=== PATIENT | male | born 1985 | race Caucasian/White ===

== ENCOUNTER 2018-09-20 12:36 | Emergency (ER) | payer OTHER, MEDICAID ==
[~2018-09-20] VITALS: Ht 185.4 cm; Wt 106.6 kg
[2018-09-20 12:36] VITALS: BP_SYST 122
--- NOTE | 2018-09-20 12:37 | NUR ---
BROUGHT IN BY [facility] AND PLACED IN BED #1. REPORT GIVEN TO CRISTINE
--- NOTE | 2018-09-20 12:40 | NUR ---
PATIENT SITTING UP ON BED. AAOX4. RESPIRATIONS EVEN AND UNLABORED. DENIES OF ANY CHEST PAIN OR SOB. PT IN NO ACUTE DISTRESS. PT WITH C/O GENERALIZED ABDOMINAL PAIN WITH NO BM x2 DAYS. +NAUSEA. PT STATES THAT HE VOMITED x4 TODAY. NO ACTIVE VOMITING NOTED. NO OBJECTIVE S/SX OF PAIN OBSERVED. ABDOMINAL PAIN = 8/10 AT THIS TIME BUT TOLERABLE VERBALIZED. BOWEL SOUNDS HYPERACTIVE x4. PATIENT IN NO ACUTE DISTRESS. WILL CONTINUE TO MONITOR.
--- NOTE | 2018-09-20 12:45 | NUR ---
ER Dr. DREW at bedside examining patient.
[2018-09-20 13:13] LABS: BILIRUBIN,URINE NEGATIVE (NEGATIVE); BLOOD, URINE NEGATIVE (NEGATIVE); CLARITY/URINE SL HAZY (CLEAR); COLOR,URINE YELLOW (YELLOW); GLUCOSE,URINE NEGATIVE (NEGATIVE); KETONES,URINE NEGATIVE (NEGATIVE); LEUKOCYTE ESTERASE ,URINE NEGATIVE (NEGATIVE); NITRITE, URINE NEGATIVE (NEGATIVE); PROTEIN URINE NEGATIVE (NEGATIVE); UROBILINOGEN,URINE 0.2 (0.2-1.0)
[2018-09-20 13:19] LABS: CALCIUM 9.1 mg/dL (8.4-11.0); CREATININE 0.84 mg/dL (0.55-1.30); POTASSIUM 4.5 mmol/L (3.5-5.1)
[2018-09-20 13:21] LABS: BASOPHILS % (AUTO) 0.2 % (0.0-2.0); EOSINOPHILS % (AUTO) 0.9 % (0.0-4.0); LYMPHOCYTES # (AUTO) 1.3 K/uL (1.0-5.5); LYMPHOCYTES % (AUTO) 26.1 % (20.5-51.5); MEAN CORPUSCULAR HEMOGLOBIN 31 pg (27-31); MEAN CORPUSCULAR HGB CONC 33 % (32-36); MEAN CORPUSCULAR VOLUME 93 fL (79.0-98.0); MONOCYTES # (AUTO) 0.5 K/uL (0.0-1.0); MONOCYTES % (AUTO) 10.4 % (1.7-9.3); NEUTROPHILS # (AUTO) 3.2 K/uL (1.8-7.7); NEUTROPHILS % (AUTO) 62.4 % (40.0-70.0); PLATELET COUNT (AUTO) 302 K/uL (130-430); RED CELL DISTRIBUTION WIDTH 12.3 % (9.0-15.0)
[2018-09-20 13:24] LABS: ALBUMIN 3.7 g/dL (3.4-4.8); TOTAL BILIRUBIN 0.1 mg/dL (0.0-1.0)
[2018-09-20] MEDS ORDERED: KETOROLAC TROMETHAMINE 60 MG/2 ML VIAL IM ONE ×2 (13:29→13:30)
--- NOTE | 2018-09-20 13:35 | NUR ---
TORADOL ADMINISTERED FOR ABDOMINAL PAIN. TOLERATED WELL.
--- NOTE | 2018-09-20 14:00 | NUR ---
PATIENT SITTING UP ON BED. PT IN GOOD CONDITION AND IN NO ACUTE DISTRESS. PT READY FOR DISCHARGE, BUT AWAITING RIDE BACK TO [facility]. FACILITY MADE AWARE AND SEND TRANSPORTATION FOR PATIENT. ETA [id number].
--- NOTE | 2018-09-20 14:15 | NUR ---
PATIENT VERBALIZED RELIEF FROM ABDOMINAL PAIN. PAIN = 0/10. PT IN NO ACUTE DISTRESS. WILL CONTINUE TO MONITOR.
--- NOTE | 2018-09-20 15:00 | NUR ---
RPatient resting quietly. No acute distress noted.
[2018-09-20 15:45] VITALS: BP_SYST 140
--- NOTE | 2018-09-20 15:45 | NUR ---
Patient given written and verbal discharge instructions and verbalizes understanding. ER MD discussed with patient the results and treatment provided. Patient in stable condition. ID arm band removed. Rx of given. Patient educated on pain management and to follow up with PMD. Pain Scale 0/10. Opportunity for questions provided and answered. Medication side effect fact sheet provided. PATIENT IN GOOD CONDITION AND IN NO ACUTE DISTRESS. PT NOTED WITH A STEADY GAIT.
== END 2018-09-20 15:45 | disposition home or self-care (01) ==
LOC: SED 12:36
DX: K56.41 Fecal impaction (principal); F20.0 Paranoid schizophrenia; Z88.5 Allergy status to narcotic agent; Z88.6 Allergy status to analgesic agent; Z91.041 Radiographic dye allergy status
CPT/HCPCS: 36415; 74176; 80053; 81003; 82150; 83690; 85025; 85610; 85730; 96372; 99284; J1885

== ENCOUNTER 2023-07-18 21:03 | Emergency (ER) | payer OTHER, MEDICAID ==
[~2023-07-18] VITALS: Ht 180.3 cm; Wt 94.8 kg
[2023-07-18 21:09] VITALS: BP_SYST 96; PULSE 82; RESP 16; TEMP 97.2; O2SAT 97
[2023-07-18 21:35] LABS: BASOPHILS # (AUTO) 0.1 K/uL (0.0-0.2); BASOPHILS % (AUTO) 1.3 % (0.0-2.0); EOSINOPHILS # (AUTO) 0.1 K/uL (0.0-0.4); EOSINOPHILS % (AUTO) 1.9 % (0.0-4.0); HEMATOCRIT 35.8 % (36-54); LYMPHOCYTES # (AUTO) 1.7 K/uL (1.0-5.5); LYMPHOCYTES % (AUTO) 37.7 % (20.5-51.5); MEAN CORPUSCULAR HEMOGLOBIN 33 pg (27-31); MEAN CORPUSCULAR HGB CONC 33 % (32-36); MEAN CORPUSCULAR VOLUME 97 fL (79.0-98.0); MONOCYTES # (AUTO) 0.5 K/uL (0.0-1.0); MONOCYTES % (AUTO) 11.7 % (1.7-9.3); NEUTROPHILS # (AUTO) 2.1 K/uL (1.8-7.7); NEUTROPHILS % (AUTO) 47.4 % (40.0-70.0); PLATELET COUNT (AUTO) 276 K/uL (130-430); RED BLOOD CELL COUNT(AUTO) 3.69 MIL/uL (4.2-6.2); RED CELL DISTRIBUTION WIDTH 13.7 % (9.0-15.0); WHITE BLOOD COUNT (AUTO) 4.5 K/uL (4.8-10.8)
[2023-07-18 21:47] LABS: CALCIUM 9.1 mg/dL (8.4-11.0); CREATININE 0.94 mg/dL (0.55-1.30); POTASSIUM 4.8 mmol/L (3.5-5.1)
[2023-07-18 21:51] LABS: ALBUMIN 3.7 g/dL (3.4-4.8); TOTAL BILIRUBIN 0.2 mg/dL (0.0-1.0); TOTAL PROTEIN, SERUM 6.8 g/dL (6.4-8.3)
[2023-07-18] MEDS ORDERED: MAG-AL HYDROX/SIMETH 30 ML UDC PO ONE (23:15)
[2023-07-18] MEDS ORDERED: DICYCLOMINE HCL 20 MG/2 ML AMP IM ONE (23:15)
[2023-07-19] MEDS ORDERED: POLY119P2 PO (00:35)
[2023-07-19] MEDS ORDERED: DICY-14 PO (00:35)
[2023-07-19 00:53] VITALS: BP_SYST 102; PULSE 85; RESP 17; TEMP 97.2; O2SAT 94
== END 2023-07-19 00:53 | disposition home or self-care (01) ==
LOC: SED 21:03
DX: K59.00 Constipation, unspecified (principal); R10.11 Right upper quadrant pain; R11.0 Nausea; R19.7 Diarrhea, unspecified; Z88.5 Allergy status to narcotic agent; Z88.6 Allergy status to analgesic agent; Z91.041 Radiographic dye allergy status; Z79.899 Other long term (current) drug therapy
CPT/HCPCS: 99284; 80053; 83690; 85025; 36415; 74021; 96372; J0500

== ENCOUNTER 2024-04-08 13:24 | Emergency (ER) | payer OTHER, MEDICAID ==
[~2024-04-08] VITALS: Ht 185.4 cm; Wt 95.3 kg
[~2024-04-08 13:24] MED LIST: DICY-14 PO
[2024-04-08 13:25] VITALS: BP_SYST 143; PULSE 106; RESP 20; TEMP 98.4; O2SAT 98
[2024-04-08 14:12] LABS: BASOPHILS % (AUTO) 0.6 % (0.0-2.0); EOSINOPHILS % (AUTO) 1.4 % (0.0-4.0); HEMATOCRIT 40.7 % (36-54); LYMPHOCYTES # (AUTO) 1.1 K/uL (1.0-5.5); LYMPHOCYTES % (AUTO) 32.5 % (20.5-51.5); MEAN CORPUSCULAR HEMOGLOBIN 33 pg (27-31); MEAN CORPUSCULAR HGB CONC 34 % (32-36); MEAN CORPUSCULAR VOLUME 96 fL (79.0-98.0); MONOCYTES # (AUTO) 0.4 K/uL (0.0-1.0); MONOCYTES % (AUTO) 10.3 % (1.7-9.3); NEUTROPHILS # (AUTO) 1.9 K/uL (1.8-7.7); NEUTROPHILS % (AUTO) 55.2 % (40.0-70.0); PLATELET COUNT (AUTO) 216 K/uL (130-430); RED BLOOD CELL COUNT(AUTO) 4.25 MIL/uL (4.2-6.2); RED CELL DISTRIBUTION WIDTH 15.4 % (9.0-15.0); WHITE BLOOD COUNT (AUTO) 3.4 K/uL (4.8-10.8)
[2024-04-08 14:20] VITALS: BP_SYST 143; PULSE 106; RESP 20; TEMP 98.4; O2SAT 98
[2024-04-08 14:31] LABS: ANION GAP 10 (5-15); CALCIUM 8.9 mg/dL (8.4-11.0); CARBON DIOXIDE 22 mmol/L (23-29); CHLORIDE 109 mmol/L (98-107); CREATININE 1.03 mg/dL (0.55-1.30); GFR AFRICAN AMERICAN 103 mL/min (>90); GLUCOSE 104 mg/dL (74-106); SODIUM SERUM 141 mmol/L (136-145); UREA NITROGEN, BLOOD 15 mg/dL (8-21)
[2024-04-08 14:34] LABS: GFR NON AFRICAN-AMERICAN 85 mL/min (>90)
== END 2024-04-08 14:15 | disposition left against medical advice (07) ==
LOC: SED 13:24
DX: R07.89 Other chest pain (principal); F17.210 Nicotine dependence, cigarettes, uncomplicated; Z88.6 Allergy status to analgesic agent; Z88.5 Allergy status to narcotic agent; Z91.041 Radiographic dye allergy status; Z79.899 Other long term (current) drug therapy
CPT/HCPCS: 36415; 71045; 80048; 83880; 84484; 85025; 93005; 99285

== ENCOUNTER 2024-04-20 15:13 | Emergency (ER) | payer OTHER, MEDICAID ==
[~2024-04-20] VITALS: Ht 182.9 cm; Wt 96.6 kg
[2024-04-20 15:23] VITALS: BP_SYST 136; PULSE 100; RESP 18; TEMP 98.3; O2SAT 96
[2024-04-20] MEDS ORDERED: CARB15DR93 EACH EAR (15:32)
== END 2024-04-20 15:48 | disposition home or self-care (01) ==
LOC: SED 15:13
DX: H61.22 Impacted cerumen, left ear (principal); Z88.5 Allergy status to narcotic agent; Z88.6 Allergy status to analgesic agent; Z91.041 Radiographic dye allergy status; Z79.899 Other long term (current) drug therapy
CPT/HCPCS: 99282

== ENCOUNTER 2024-04-26 13:58 | Emergency (ER) | payer OTHER, MEDICAID ==
[~2024-04-26] VITALS: Ht 182.9 cm; Wt 96.6 kg
[~2024-04-26 13:58] MED LIST changes: +CARB15DR93 EACH EAR
[2024-04-26 14:48] VITALS: BP_SYST 122; PULSE 106; RESP 18; TEMP 97.2; O2SAT 96
[2024-04-26 16:45] VITALS: BP_SYST 122; PULSE 106; RESP 18; TEMP 97.2; O2SAT 96
== END 2024-04-26 15:31 | disposition home or self-care (01) ==
LOC: SED 13:58
DX: S63.8X1A Sprain of other part of right wrist and hand, initial encounter (principal); I10 Essential (primary) hypertension; Z88.5 Allergy status to narcotic agent; Z88.6 Allergy status to analgesic agent; Z91.041 Radiographic dye allergy status; Z79.899 Other long term (current) drug therapy; W22.8XXA Striking against or struck by other objects, initial encounter; Y93.89 Activity, other specified; Y92.89 Other specified places as the place of occurrence of the external cause; Y99.8 Other external cause status
CPT/HCPCS: 99283

== ENCOUNTER 2024-04-30 14:23 | Emergency (ER) | payer OTHER, MEDICAID ==
[~2024-04-30] VITALS: Ht 182.9 cm; Wt 96.6 kg
[2024-04-30 14:23] VITALS: BP_SYST 112; PULSE 106; RESP 19; TEMP 98; O2SAT 98
[2024-04-30] MEDS: LORazepam 1 MG TABLET PO ONE (14:34)
[2024-04-30 15:03] VITALS: BP_SYST 112; PULSE 106; RESP 19; TEMP 98; O2SAT 98
== END 2024-04-30 15:05 | disposition home or self-care (01) ==
LOC: SED 14:23
DX: F41.9 Anxiety disorder, unspecified (principal); I10 Essential (primary) hypertension; Z88.5 Allergy status to narcotic agent; Z88.6 Allergy status to analgesic agent; Z79.899 Other long term (current) drug therapy
CPT/HCPCS: 99283

== ENCOUNTER 2024-05-08 11:08 | Emergency (ER) | payer OTHER, MEDICAID ==
[~2024-05-08] VITALS: Ht 180.3 cm; Wt 98.4 kg
[2024-05-08 11:18] VITALS: BP_SYST 120; PULSE 100; RESP 18; TEMP 98.3; O2SAT 99
[2024-05-08] MEDS: ALPRAZolam 0.25 MG TABLET PO ONE (11:35)
[2024-05-08 11:41] LABS: BASOPHILS % (AUTO) 0.8 % (0.0-2.0); EOSINOPHILS # (AUTO) 0.1 K/uL (0.0-0.4); EOSINOPHILS % (AUTO) 2.6 % (0.0-4.0); HEMATOCRIT 40.1 % (36-54); HEMOGLOBIN 13.7 g/dL (14.0-18.0); LYMPHOCYTES # (AUTO) 1.5 K/uL (1.0-5.5); MEAN CORPUSCULAR HEMOGLOBIN 33 pg (27-31); MEAN CORPUSCULAR HGB CONC 34 % (32-36); MEAN CORPUSCULAR VOLUME 98 fL (79.0-98.0); MONOCYTES # (AUTO) 0.3 K/uL (0.0-1.0); NEUTROPHILS # (AUTO) 1.6 K/uL (1.8-7.7); NEUTROPHILS % (AUTO) 44.6 % (40.0-70.0); PLATELET COUNT (AUTO) 217 K/uL (130-430); RED CELL DISTRIBUTION WIDTH 14.2 % (9.0-15.0)
[2024-05-08 11:42] LABS: WHITE BLOOD COUNT (AUTO) 3.5 K/uL (4.8-10.8)
[2024-05-08 12:08] LABS: ALANINE AMINOTRANSFERASE 35 U/L (12-78); ALBUMIN 3.7 g/dL (3.4-4.8); ANION GAP 13 (5-15); ASPARTATE AMINOTRANSFERASE 17 U/L (10-37); BILIRUBIN,DIRECT 0.1 mg/dL (0.0-0.3); CALCIUM 8.8 mg/dL (8.4-11.0); CARBON DIOXIDE 22 mmol/L (23-29); CHLORIDE 106 mmol/L (98-107); CREATINE KINASE, TOTAL 184 U/L (39-308); CREATININE 0.83 mg/dL (0.55-1.30); GFR AFRICAN AMERICAN 133 mL/min (>90); GFR NON AFRICAN-AMERICAN 110 mL/min (>90); GLUCOSE 101 mg/dL (74-106); POTASSIUM 4.3 mmol/L (3.5-5.1); SALICYLATE 3 mg/dL (3-30); SODIUM SERUM 141 mmol/L (136-145); TOTAL BILIRUBIN 0.4 mg/dL (0.0-1.0); UREA NITROGEN, BLOOD 11 mg/dL (8-21)
[2024-05-08 12:09] LABS: ALCOHOL, BLOOD < 3 mg/dL (<10)
[2024-05-08 12:11] LABS: ACETAMINOPHEN < 1 ug/mL (1-30)
[2024-05-08] MEDS ORDERED: ALPR0.5T PO (13:45)
[2024-05-08 13:55] VITALS: BP_SYST 131; PULSE 90; RESP 18; TEMP 98.1; O2SAT 98
== END 2024-05-08 13:55 | disposition home or self-care (01) ==
LOC: SED 11:08
DX: F23 Brief psychotic disorder (principal); F41.9 Anxiety disorder, unspecified; I10 Essential (primary) hypertension; Z88.6 Allergy status to analgesic agent; Z88.5 Allergy status to narcotic agent; Z91.041 Radiographic dye allergy status; Z79.899 Other long term (current) drug therapy; Z79.2 Long term (current) use of antibiotics
CPT/HCPCS: 99283; 80076; 80048; 82550; 85025; 36415; G0482; G0480; G0481

== ENCOUNTER 2024-06-04 18:54 | Emergency (ER) | payer OTHER, MEDICAID ==
[~2024-06-04] VITALS: Ht 175.3 cm; Wt 77.1 kg
[~2024-06-04 18:54] MED LIST changes: +ALPR0.5T PO
[2024-06-04 19:09] VITALS: BP_SYST 108; PULSE 100; RESP 18; TEMP 97.9; O2SAT 96
[2024-06-04] MEDS ORDERED: VIS25 PO (19:27)
[2024-06-04] MEDS ORDERED: POLY17PO4 PO (19:27)
[2024-06-04] MEDS: LORazepam 1 MG TABLET PO ONE (19:32)
[2024-06-04 19:40] VITALS: BP_SYST 108; PULSE 100; RESP 18; TEMP 97.9; O2SAT 96
== END 2024-06-04 19:40 | disposition home or self-care (01) ==
LOC: SED 18:54
DX: F41.9 Anxiety disorder, unspecified (principal); K59.00 Constipation, unspecified; F17.210 Nicotine dependence, cigarettes, uncomplicated; I10 Essential (primary) hypertension; Z98.890 Other specified postprocedural states; Z88.5 Allergy status to narcotic agent; Z88.6 Allergy status to analgesic agent; Z91.041 Radiographic dye allergy status; Z79.899 Other long term (current) drug therapy; Z79.2 Long term (current) use of antibiotics
CPT/HCPCS: 99283

== ENCOUNTER 2024-06-28 14:03 | Emergency (ER) | payer OTHER, MEDICAID ==
[~2024-06-28] VITALS: Ht 182.9 cm; Wt 96.6 kg
[~2024-06-28 14:03] MED LIST changes: +POLY17PO4 PO; +VIS25 PO
[2024-06-28 14:15] VITALS: BP_SYST 117; PULSE 101; RESP 21; TEMP 97.8; O2SAT 94
[2024-06-28 15:40] VITALS: BP_SYST 117; PULSE 101; RESP 21; TEMP 97.8; O2SAT 94
== END 2024-06-28 16:01 | disposition home or self-care (01) ==
LOC: SED 14:03
DX: S43.492A Other sprain of left shoulder joint, initial encounter (principal); I10 Essential (primary) hypertension; Z98.890 Other specified postprocedural states; Z88.6 Allergy status to analgesic agent; Z88.5 Allergy status to narcotic agent; Z91.041 Radiographic dye allergy status; Z79.899 Other long term (current) drug therapy; Z79.2 Long term (current) use of antibiotics; X58.XXXA Exposure to other specified factors, initial encounter; Y93.89 Activity, other specified; Y92.89 Other specified places as the place of occurrence of the external cause; Y99.8 Other external cause status
CPT/HCPCS: 73030; 99283